=== PATIENT | male | born 1960 | race Caucasian/White ===

== ENCOUNTER 2025-06-03 12:29 | Outpatient (CLI) | payer BC ==
[2025-06-03 13:23] LABS: Estimated GFR - POC 45.0
== END 2025-06-03 12:30 | disposition home or self-care (01) ==
LOC: CT 12:29
PROVIDERS: ATTEND Internal Medicine
DX: C64.1 Malignant neoplasm of right kidney, except renal pelvis (principal)
CPT/HCPCS: 71260; 82565